=== PATIENT | male | born 1970 | race Hispanic/Latino ===

== ENCOUNTER 2018-02-24 13:27 | Emergency (ER) | payer MEDICARE ==
[2018-02-24] MEDS ORDERED: IBUPROFEN 600 MG TABLET ONE (14:11)
[2018-02-24] MEDS ORDERED: DIAZEPAM 5 MG TABLET ONE (14:12)
[2018-02-24] MEDS ORDERED: LIDOCAINE 5% TOPICAL PATCH TP ONE (14:12)
== END 2018-02-24 15:13 | disposition home or self-care (01) ==
LOC: EDH 13:27
DX: S39.012A Strain of muscle, fascia and tendon of lower back, initial encounter (principal); M62.830 Muscle spasm of back; I10 Essential (primary) hypertension; Z88.6 Allergy status to analgesic agent; Z88.1 Allergy status to other antibiotic agents; Z88.8 Allergy status to other drugs, medicaments and biological substances; V98.8XXA Other specified transport accidents, initial encounter; Y93.55 Activity, bike riding; Y92.89 Other specified places as the place of occurrence of the external cause; Y99.8 Other external cause status